=== PATIENT | male | born 1955 | race Caucasian/White ===

== ENCOUNTER → 2019-10-30 11:47 | Outpatient (CLI) | payer MEDICARE, OTHER, SELFPAY | PROVIDERS: PCP Family Medicine; Visit Provider Family Medicine | DX: R82.994 Hypercalciuria (principal); R29.890 Loss of height; Z87.891 Personal history of nicotine dependence | CPT/HCPCS: 77080 ==

== ENCOUNTER → 2019-10-30 11:55 | Outpatient (CLI) | payer OTHER, SELFPAY ==
--- NOTE | 2019-10-30 | DI.RAD.S_ITS ---
PROCEDURE: XR KNEE LT 3V INDICATIONS: ARTHRITIS TECHNIQUE: 3 views of the knee were acquired. COMPARISON: None. FINDINGS: Bones: No fractures or dislocations. No suspicious bony lesions. Mild degenerative joint disease with periarticular osteophytes. Soft tissues: Small knee joint effusion. No suspicious soft tissue calcifications. IMPRESSION: Mild degenerative joint disease and small knee joint effusion. Dictated by: Nando Townsend M.D. on 10/30/2019 at 14:20 Approved by: Nando Townsend M.D. on 10/30/2019 at 14:21
--- NOTE | 2019-10-30 | DI.RAD.S_ITS ---
PROCEDURE: XR KNEE RT 3V INDICATIONS: ARTHRITIS TECHNIQUE: 3 views of the knee were acquired. COMPARISON: None. FINDINGS: Bones: No fractures or dislocations. No suspicious bony lesions. Mild degenerative joint disease with small periarticular osteophytes. Soft tissues: No joint effusion. No suspicious soft tissue calcifications. IMPRESSION: Mild degenerative joint disease. Dictated by: Nando Townsend M.D. on 10/30/2019 at 14:19 Approved by: Nando Townsend M.D. on 10/30/2019 at 14:20
== END ==
PROVIDERS: Family Provider Family Medicine; PCP Family Medicine; Visit Provider Orthopaedic Surgery
DX: M17.0 Bilateral primary osteoarthritis of knee (principal); M25.462 Effusion, left knee
CPT/HCPCS: 73562

== ENCOUNTER → 2019-11-27 10:20 | Outpatient (CLI) | payer OTHER, SELFPAY ==
--- NOTE | 2019-11-27 | DI.RAD.S_ITS ---
PROCEDURE: XR CHEST 2V INDICATIONS: XR CHEST 2VWS TECHNIQUE: 2 views of the chest were acquired. COMPARISON: None. FINDINGS: Surgical changes and devices: None. Lungs and pleura: Lungs are clear. No pleural effusions or pneumothorax. Mediastinum: Mediastinal contours are normal. Heart size is normal. Bones and chest wall: No suspicious bony abnormalities. Multilevel thoracic spondylosis. Soft tissues appear unremarkable. IMPRESSION: No acute cardiopulmonary abnormalities noted. Dictated by: Philip James M.D. on 11/27/2019 at 16:12 Approved by: Philip James M.D. on 11/27/2019 at 16:13
== END ==
PROVIDERS: Family Provider Family Medicine; PCP Family Medicine; Referring Provider Physician Assistant; Visit Provider Physician Assistant
DX: Z00.00 Encounter for general adult medical examination without abnormal findings (principal)
CPT/HCPCS: 71046

== ENCOUNTER → 2019-12-06 08:02 | Outpatient (CLI) | payer OTHER, SELFPAY ==
--- NOTE | 2019-12-06 | DI.RAD.S_ITS ---
PROCEDURE: XR HAND RT 2V INDICATIONS: arthritits TECHNIQUE: 3 views of the hand(s) acquired. COMPARISON: None. FINDINGS: Bones: No fractures or dislocations. Carpal bones are normally aligned. No suspicious bony lesions. There is a pattern of mild degenerative osteoarthritic joint space narrowing at the distal interphalangeal joints but no evidence of erosive arthritis. Soft tissues: No suspicious soft tissue calcifications. 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 Dictated by: Lemuel Lucio M.D. on 12/06/2019 at 9:11 Approved by: Lemuel Lucio M.D. on 12/06/2019 at 9:12
== END ==
PROVIDERS: Family Provider Family Medicine; PCP Family Medicine; Referring Provider Orthopaedic Surgery; Visit Provider Orthopaedic Surgery
DX: M19.041 Primary osteoarthritis, right hand (principal)
CPT/HCPCS: 73130

== ENCOUNTER → 2019-12-14 09:34 | Outpatient (CLI) | payer OTHER, SELFPAY ==
--- NOTE | 2019-12-14 | DI.RAD.S_ITS ---
PROCEDURE: XR HAND LT 2V INDICATIONS: LEFT HAND ARTHRITIS TECHNIQUE: 3 views of the hand(s) acquired. COMPARISON: [facility], CR, XR HAND RT 2V, 12/06/2019, 8:06. FINDINGS: Bones: No fractures or dislocations. Carpal bones are normally aligned. No suspicious bony lesions. First CMC and triscaphe joint degeneration. No definite juxta-articular lucencies Soft tissues: No suspicious soft tissue calcifications. IMPRESSION: Mild left hand osteoarthritis as above Dictated by: Ck Morrow M.D. on 12/14/2019 at 10:44 Approved by: Ck Morrow M.D. on 12/14/2019 at 10:45
== END ==
PROVIDERS: Family Provider Family Medicine; PCP Family Medicine; Referring Provider Orthopaedic Surgery; Visit Provider Orthopaedic Surgery
DX: M18.12 Unilateral primary osteoarthritis of first carpometacarpal joint, left hand (principal)
CPT/HCPCS: 73120

== ENCOUNTER → 2021-08-28 11:57 | Outpatient (CLI) | payer MEDICARE, OTHER, SELFPAY ==
--- NOTE | 2021-08-28 | DI.MRI.S_ITS ---
PROCEDURE: MR CERVICAL SPINE WO CON INDICATIONS: Radiculopathy, cervical region TECHNIQUE: Noncontrast sagittal T1 spin echo and T2 fast spin echo, sagittal STIR, foraminal oblique sagittal T2 fast spin echo, and axial gradient echo or T2 fast spin echo through the cervical spine. COMPARISON: None. FINDINGS: Image quality: Excellent. Alignment and Curvature: There is normal bony alignment. Bone Marrow: No acute fracture. Scattered degenerative subchondral sclerosis and spurring. Spinal Cord: Visualized spinal cord has normal size and signal. No cerebellar tonsillar herniation. Paraspinous Soft Tissues: No paravertebral masses. Prevertebral soft tissues are normal in thickness. C2-C3: No canal or left foraminal stenosis. Moderate right foraminal narrowing with slight nerve root compression. C3-C4: No canal stenosis. Moderate bilateral foraminal stenoses with with questionable nerve root compression on both sides C4-C5: Mild canal narrowing. Mild foraminal narrowing on the right with slight nerve root compression. Moderate left foraminal stenosis. C5-C6: [id number] canal narrowing with effacement of the anterior and posterior thecal sac. Mild right foraminal stenosis. Mild to moderate left foraminal narrowing. C6-C7: Mild canal narrowing with effacement of the anterior and posterior thecal sac moderate right foraminal stenosis. Severe left foraminal stenosis with borderline nerve root compression C7-T1: Mild canal narrowing. No foraminal stenoses. IMPRESSION: Cervical spondylosis and facet arthropathy with canal and foraminal narrowing as detailed above. Straightening of the normal lordotic curvature. Dictated by: Ck Morrow M.D. on 08/28/2021 at 12:54 Approved by: Ck Morrow M.D. on 08/28/2021 at 13:00
== END ==
PROVIDERS: Family Provider Family Medicine; PCP Family Medicine; Referring Provider Family Medicine; Visit Provider Family Medicine
DX: M47.22 Other spondylosis with radiculopathy, cervical region (principal)
CPT/HCPCS: 72141

== ENCOUNTER → 2021-12-25 15:55 | Outpatient (CLI) | payer MEDICARE, OTHER, SELFPAY ==
--- NOTE | 2021-12-25 | DI.MRI.S_ITS ---
PROCEDURE: MR HEAD/BRAIN WO CON INDICATIONS: Headache with orthostatic component, not elsewhere classifie TECHNIQUE: Non-contrast axial T1 spin echo, axial T2 fast spin echo, sagittal and axial FLAIR, coronal T2 fast spin echo, axial gradient echo, axial diffusion and ADC through the brain. COMPARISON: None. FINDINGS: Image quality: Excellent. CSF spaces: Ventricles appear symmetric in size and shape. Basal cisterns are patent. No extra-axial fluid collections. Brain: No intracranial bleeds or mass effects. There is cerebral volume loss for age. There are mild periventricular and deep white matter chronic small vessel ischemic changes. Brainstem appears normal. Diffusion-weighted images show no acute ischemic insults. No chronic ischemic insults. Normal intravascular flow voids are present. Skull and face: Calvarial bone marrow is normal in signal. Orbits are normal. Sinuses: Opacification of the right sphenoid sinus, partial opacification and mucosal thickening of the left maxillary sinus, patchy left ethmoid disease. IMPRESSION: 1. Sinusitis. 2. Age appropriate volume loss and small vessel ischemic change. 3. No evidence acute stroke, hemorrhage, or mass. Dictated by: Ken Gomez M.D. on 12/25/2021 at 16:34 Approved by: Ken Gomez M.D. on 12/25/2021 at 16:37
== END ==
PROVIDERS: Family Provider Family Medicine; PCP Family Medicine; Referring Provider Family Medicine; Visit Provider Family Medicine
DX: R51.0 Headache with orthostatic component, not elsewhere classified (principal); J32.8 Other chronic sinusitis
CPT/HCPCS: 70551

== ENCOUNTER → 2024-06-06 07:59 | Outpatient (CLI) | payer MEDICARE, OTHER, SELFPAY ==
[2024-06-06 09:19] LABS: Alanine Aminotransferase 50 IU/L (<50); Albumin 4.3 g/dL (3.5-5.0); Albumin Globulin Ratio 1.5 (1.0-2.8); Alkaline Phosphatase 92 U/L (38-126); Aspartate Aminotransferase 38 IU/L (17-59); Bilirubin Total 0.8 mg/dL (0.2-1.3); Bilirubin Unconjugated 0.4 mg/dL (0.0-1.1); Cholesterol 118 mg/dL (140-199); Creatine Kinase 199 U/L (55-170); Globulin 2.8 g/dL (1.7-4.1); HDL Cholesterol 40 mg/dL (40-60); HEMOLYSIS 28 (0-50); LDL Cholesterol Calculated 49 mg/dL (<100); Total Protein 7.1 g/dL (6.3-8.2); Triglycerides 144 mg/dL (35-150)
== END ==
PROVIDERS: Family Provider Family Medicine; PCP Family Medicine; Referring Provider Internal Medicine; Visit Provider Internal Medicine
DX: E78.5 Hyperlipidemia, unspecified (principal)
CPT/HCPCS: 36415; 80061; 80076; 82550